=== PATIENT | male | born 1960 | race Caucasian/White ===

== ENCOUNTER 2020-11-14 14:30 | Emergency (ER) | payer OTHER ==
[2020-11-14 15:16] VITALS: BP 149/88; PULSE 76; RESP 16; TEMP 98.3
[2020-11-14] MEDS ORDERED: FLUORESCEIN STRIPS 1 MG STRIP RIGHT EYE ONE (16:02)
[2020-11-14] MEDS ORDERED: PROPARACAINE 0.5% OPHTH DROPS 15 ML BTL RIGHT EYE STA (16:02)
[2020-11-14] MEDS ORDERED: TOBRAMYCIN 0.3% OPHTH DROPS 5 ML BTL RIGHT EYE STA (16:24)
--- NOTE | 2020-11-14 16:26 | ED ---
Eye Problem HPI - General Chief complaint: Eye Problems Stated complaint: [facility] R Eye injury Time Seen by Provider: 11/14/20 16:01 Source: patient, RN notes reviewed Mode of arrival: ambulatory Limitations: no limitations - History of Present Illness Initial comments: Patient is a 59-year-old male that presents to emergency department complaining of right eye discomfort and pain. He notes that he got hit in the eye with a plastic clamp at work today he notes that it is more discomfort than pain. He denied any blurry vision change in vision. He was otherwise well-appearing. He denied chest pain shortness of breath headache nausea vomiting diarrhea constipation fever fatigue chills. He is up-to-date with his tetanus shot. - Related Data Allergies Allergy/AdvReac Type Severity Reaction Status Date / Time No Known Allergies Allergy Verified 11/14/20 15:13 Review of Systems ROS Statement: Those systems with pertinent positive or pertinent negative responses have been documented in the HPI. ROS Other: All systems not noted in ROS Statement are negative. Past Medical History Past Medical History: No Reported History History of Any Multi-Drug Resistant Organisms: None Reported Past Surgical History: Hernia Repair, Orthopedic Surgery, Tonsillectomy Past Psychological History: No Psychological Hx Reported Smoking Status: Current some day smoker Past Alcohol Use History: None Reported Past Drug Use History: Marijuana General Exam Limitations: no limitations General appearance: alert, in no apparent distress Head exam: Present: atraumatic, normocephalic, normal inspection Eye exam: Present: normal appearance, PERRL, EOMI. Absent: scleral icterus, conjunctival injection, periorbital swelling Expanded Sclera/Conjunctival: Normal Inspection: Left, Hemorrhage: Right ENT exam: Present: normal exam, mucous membranes moist Neck exam: Present: normal inspection. Absent: tenderness, meningismus, lymphadenopathy Respiratory exam: Present: normal lung sounds bilaterally. Absent: respiratory distress, wheezes, rales, rhonchi, stridor Cardiovascular Exam: Present: regular rate, normal rhythm, normal heart sounds. Absent: systolic murmur, diastolic murmur, rubs, gallop, clicks Extremities exam: Present: normal inspection, full ROM, normal capillary refill. Absent: tenderness, pedal edema, joint swelling, calf tenderness Neurological exam: Present: alert, oriented X3 Psychiatric exam: Present: normal affect, normal mood Skin exam: Present: warm, dry, intact, normal color. Absent: rash Course Vital Signs 11/14/20 15:13 Temperature 98.3 F Pulse Rate 76 Respiratory 16 Rate Blood Pressure 149/88 O2 Sat by Pulse 98 Oximetry Medical Decision Making - Medical Decision Making 59-year-old male complaining of right eye discomfort after getting hit in the eye with a plastic clamp. Fluoroscein stain and proparacaine eyedrops ordered. On exam patient did have a right eye lateral aspect abrasion with subconjunctival hemorrhage. Extraoculars intact with no pain. Tobramicin drops ordered. Case discussed with Dr. Presley outpatient discharge home with follow-up to primary care. Disposition Clinical Impression: Corneal abrasion, Subconjunctival hemorrhage Disposition: HOME SELF-CARE Condition: Stable Instructions (If sedation given, give patient instructions): Eye Lubricant (Into the eye) Additional Instructions: Please return to the Emergency Department if symptoms worsen or any other conc erns. Use tobramycin drops as directed. Follow-up primary care 1-2 days. Avoid rubbing eyes. Is patient prescribed a controlled substance at d/c from ED?: No Referrals: None,Stated [Primary Care Provider] - 1-2 days Time of Disposition: 16:26
== END 2020-11-14 16:48 | disposition home or self-care (01) ==
LOC: EC 14:30
DX: S05.01XA Injury of conjunctiva and corneal abrasion without foreign body, right eye, initial encounter (principal); H11.31 Conjunctival hemorrhage, right eye; F17.200 Nicotine dependence, unspecified, uncomplicated; F12.90 Cannabis use, unspecified, uncomplicated; W22.8XXA Striking against or struck by other objects, initial encounter
CPT/HCPCS: 99283